=== PATIENT | female | born 1950 | race Caucasian/White ===

== ENCOUNTER 2021-06-24 21:04 | Inpatient (IN) | payer MEDICARE, MEDICAID, SELFPAY ==
[2021-06-24] VITALS (20 sets, daily range): BP systolic 124–174; BP diastolic 102–112; PULSE 76; RESP 19–28; TEMP 36.4; O2SAT 96–100
--- NOTE | ~2021-06-24 | US_ITS ---
US renal BI 06/26/2021 13:19 Procedure: Realtime transabdominal ultrasound of the kidneys and bladder. Indication: Possible masses seen on CT examination. Comparison: CT dated 06/26/2021 Findings: There is a 1.2 cm cyst of the right kidney. No solid renal mass identified. No hydronephros is or stones. Right renal length is 9.4 cm. Left renal echotexture is normal without hydronephrosis, mass or stone. Left kidney measures 8.3 cm. No renal mass identified. Bladder wall is mildly thickene d, although not well distended. Impression: 1: Right renal cyst measuring 1.2 cm. No solid renal masses are identified. 2: Mild bladder wall thickening which may be partially due to underdistention. Consider cystitis in t he appropriate clinical setting.. Reviewed, dictated and finalized at location A. ATION TRAINER Impression: 1: Right renal cyst measuring 1.2 cm. No solid renal masses are identified. 2: Mild bladder wall thickening which may be partially due to underdistention. Consider cystitis in the appropriate clinical setting..
--- NOTE | ~2021-06-24 | XR_ITS ---
EXAMINATION: XR chest 2V EXAM DATE: 06/24/2021 21:39 INDICATION: Medial chest pain, Open Heart Surgery. TECHNIQUE: Frontal and lateral projections of the chest obtained and reviewed. There is no prior tresa dy for comparison. FINDINGS: Triple lead pacemaker/AICD device. Mild cardiomegaly. Mild hyperinflation. No confluent co nsolidation, pneumothorax or pleural effusion suspected. There are no osseous abnormalities identifi ed. IMPRESSION: No acute cardiopulmonary findings. Reviewed, dictated and finalized at location G.
--- NOTE | ~2021-06-24 | CT_ITS ---
EXAMINATION: CTA chest PE protocol DATE: 06/26/2021 12:19 CHIEF PAYROLL CLERK INDICATION: Shortness of breath. Elevated troponin. TECHNIQUE: Computed tomographic angiography (CTA) of the chest was performed with 100 mL Omnipaque-35 0 intravenous contrast. The dose-length product was 734.28 mGy-cm. Maximum intensity projection 3D-re constructions of the aorta and other arteries were constructed by the technologist on a separate work station. COMPARISON: Chest dated 06/24/2019. FINDINGS: Study is technically adequate without evidence for pulmonary embolism. No thoracic lymphade nopathy. Cardiomegaly. No significant pleural or pericardial effusion. No endobronchial lesions. Ther e is lingular atelectasis. No focal pneumonia. There is dependent atelectasis. There is a small bleb in the right upper lobe. No pneumothorax. There are collateral vessels in the anterior chest wall. Th ere are possible bilateral renal masses, not well visualized. There are gallstones. Mild thoracic spo ndylosis. IMPRESSION: 1. No evidence for pulmonary embolism. 2: Cardiomegaly. 3: Possible bilateral renal masses. Recommend correlation with ultrasound. 3: Cholelithiasis. Reviewed, dictated and finalized at location A. F PAYROLL CLERK
--- NOTE | 2021-06-24 21:07 | ECG_ITS ---
Measurements Intervals [place] Rate: 75 P: MD: 0 QRS: -85 QRSD: 169 T: 81 QT: 460 QTc: 516 Interpretive Statements ELECTRONIC VENTRICULAR PACEMAKER UNDERLYING PROBABLY ATRIAL FLUTTER/TACHYCARDIA NO FURTHER INTERPRETATION IS POSSIBLE ABNORMAL ECG Electronically Signed On 06-25-2021 6:39:59 CROSSING GUARD by Erik Rausch D.O.
--- NOTE | 2021-06-24 21:16 | ED.CHESTPAIN ---
HPI - Chest Pain General Chief Complaint: Chest Pain Stated Complaint: chest pain Time Seen by Provider: 06/24/21 21:08 Source: patient Mode of arrival: EMS Limitations: no limitations History of Present Illness HPI narrative: Patient is a 70-year-old female complaining of chest pain, midsternal, tightness, nonradiating, 7 out of 10, accompanied by shortness of breath started proximally 1 hour ago. Patient denies any abdominal pain, nausea, vomiting, diaphoresis, fever or chills. Related Data Allergies Allergy/AdvReac Type Severity Reaction Status Date / Time No Known Allergies Allergy Mild Unverified 02/12/21 15:36 Review of Systems Review of Systems: All systems reviewed & are unremarkable except as noted in HPI and below Constitutional: Constitutional: Denies body ache(s), Denies chills, Denies excessive sweating, Denies fatigue, Denies fever(s), Denies headache(s), Denies lethargy, Denies malaise, Denies weakness and Denies weight loss Eyes: Eyes: Denies blurry vision, Denies change in vision and Denies loss of vision ENT: Denies dizziness, Denies ear discharge, Denies headache(s), Denies lip swelling, Denies epistaxis, Denies nasal congestion, Denies neck pain, Denies throat swelling and Denies tongue swelling Cardiovascular: Cardiovascular: Denies chest pain with activity, Denies diaphoresis, Denies rapid heart rate, Denies edema, Denies irregular heart rhythm, Denies lightheadedness and Denies palpitations Respiratory: Respiratory: Denies chest congestion, Denies cough and Denies hemoptysis Gastrointestinal: Gastrointestinal: Denies abdominal pain, Denies melena, Denies hematochezia, Denies diarrhea, Denies nausea, Denies vomiting and Denies hematemesis Musculoskeletal: Musculoskeletal: Denies abnormal gait, Denies deformity, Denies joint swelling, Denies limited range of motion, Denies neck pain and Denies numbness Neurologic: Denies Abnormal speech present, Denies abnormal gait, Denies confusion, Denies dizziness, Denies headache(s), Denies focal weakness, Denies loss of vision, Denies numbness, Denies Other visual disturbances, Denies Sensory deficit (Neuro) and Denies weakness Psychiatric: Psychiatric: Denies confusion, Denies depression, Denies auditory hallucinations, Denies homicidal ideation and Denies suicidal ideation Endocrine: Endocrine: Denies cold intolerance, Denies excessive sweating, Denies fatigue, Denies heat intolerance and Denies palpitations Hematologic/Lymphatic: Hematologic/Lymphatic: Denies easy bleeding and Denies easy bruising Allergic/Immunologic: Allergic/Immunologic: Denies lip swelling, Denies throat swelling and Denies tongue swelling PMFSH Comments Past medical history: Hypertension, hyperlipidemia, COPD, CABG, pacemaker Family history: Positive for coronary disease Social history: Smokes e-cigarettes, no EtOH or drug use Exam Const: General: cooperative, comfortable, no acute distress, well developed, alert and awake; No confusion Nutritional Appearance: obese Orientation/consciousness: oriented to person, oriented to place, oriented to time, patient oriented x3 and No confusion Limitations: no limitations HENMT: Head: normal to inspection, normocephalic and atraumatic Ears: hearing grossly normal bilaterally, TM normal on the right and TM normal on the left General nose exam: Normal external nose present, Normal nares present and No nasal discharge present Face and sinus: normal facial exam Mouth: Yes Normal oral and palatal mucosa present, Yes lip normal, Yes tongue normal and Yes oropharynx normal Throat: posterior oropharynx normal, tonsils normal and uvula midline Eyes: General: appearance normal, both eyes and all related structures Pupils: Equal, round and reactive pupils present EOM: EOMs intact bilaterally Neck: Neck: normal visual inspection, full ROM, no lymphadenopathy and no meningeal signs Chest: Chest palpation & inspection: normal inspection of the chest Resp: E
[2021-06-24 21:34] LABS: Basophils Percent Auto 0.5 % (0.2-1.2); Eosinophils Absolute Auto 0.2 K/mm3 (0-0.3); Eosinophils Percent Auto 2.7 % (0-4.4); Hematocrit 41.1 % (37.0-47.0); Hemoglobin 13.2 g/dL (12.0-15.0); Immature Granulocyte Absolute 0.04 K/mm3 (0.00-0.031); Immature Granulocyte Percent A 0.6 % (0-0.5); Lymphocytes Absolute Auto 1.85 K/mm3 (0.9-3.2); Lymphocytes Percent Auto 29.6 % (18.3-44.2); Mean Corpuscular HGB Conc 32.1 g/dl (32-36); Mean Corpuscular Hemoglobin 27.8 pg (26-34); Mean Corpuscular Volume 86.5 fl (80-100); Mean Platelet Volume 9.5 fl (7.4-10.4); Monocytes Absolute Auto 0.8 K/mm3 (0.1-0.6); Monocytes Percent Auto 12.6 % (2.6-8.5); Neutrophils Absolute Auto 3.4 K/mm3 (1.3-6.7); Platelet Count Result 211 k/mm3 (150-375); Red Blood Count 4.75 M/mm3 (4.2-5.4); Red Cell Distribution Width 15.5 % (11.5-14.5); White Blood Count 6.3 K/mm3 (4.5-10.0)
[2021-06-24 21:45] LABS: Partial Thromboplastin Time 23.5 SECONDS (22.3-36.8); Prothrombin Time 12.7 Seconds (11.1-14.7)
--- NOTE | 2021-06-24 21:46 | PC.NURSE ---
sitting on cot no distress, skin pwd, family at bedside
[2021-06-24 21:47] LABS: Alanine Aminotransferase 21 U/L (4-35); Albumin Level 3.8 g/dL (3.5-5.1); Alkaline Phosphatase 104 U/L (38-126); Anion Gap 4 mmol/L (8-16); Aspartate Amino Transferase 27 U/L (14-36); Bilirubin,Total 0.9 mg/dL (0.2-1.3); Blood Urea Nitrogen 23 mg/dL (7-17); Calcium 8.9 mg/dL (8.4-10.2); Carbon Dioxide 24 mmol/L (22-30); Chloride 104 mmol/L (98-107); Estimated CRCL calculation 41 ml/min; Estimated Glomerular Filt Rate 41; Glucose 128 mg/dL (65-110); Lipase 125 U/L (23-300); Potassium 4.3 mmol/L (3.4-5.0); Sodium 132 mmol/L (137-145)
[2021-06-24 22:03] LABS: Troponin I 0.035 ng/mL (0.000-0.034)
[2021-06-24] MEDS: NITROGLYCERIN SL 0.4 MG TABLET SUBLINGUAL (22:10)
--- NOTE | 2021-06-24 22:37 | PM.IMHP ---
H&P: HPI History of Present Illness Date/Time: 06/24/21 22:37 Meds Home Medications and Allergies Allergies Allergy/AdvReac Type Severity Reaction Status Date / Time No Known Allergies Allergy Mild Unverified 02/12/21 15:36 Vital Signs Vital Signs - 24 hr 06/24/21 21:08 06/24/21 21:16 Temperature 97.6 F Pulse Rate 76 Respiratory Rate 20 Blood Pressure 156/106 H Pulse Oximetry 97 H&P: Results Labs Labs: Short CBC 06/24/21 Range/Units 21:29 WBC 6.3 (4.5-10.0) K/mm3 Hgb 13.2 (12.0-15.0) g/dL Hct 41.1 (37.0-47.0) % Plt Count 211 (150-375) k/mm3 BMP 06/24/21 21:29 Sodium 132 L Potassium 4.3 Chloride 104 Carbon Dioxide 24 BUN 23 H Creatinine 1.30 H Glucose 128 H Calcium 8.9 Cardiac Enzymes 06/24/21 Range/Units 21:29 Troponin I 0.035 H (0.000-0.034) ng/mL Liver Function 06/24/21 Range/Units 21:29 Total Bilirubin 0.9 (0.2-1.3) mg/dL AST 27 (14-36) U/L ALT 21 (4-35) U/L Alkaline Phosphatase 104 (38-126) U/L Albumin 3.8 (3.5-5.1) g/dL
[2021-06-24] MEDS: ENOXAPARIN 100 MG/ML SYRINGE SUB-Q (22:39)
[2021-06-24] MEDS: MORPHINE SULFATE (*CRX) 2 MG/ML INJ IV PUSH (22:40)
[2021-06-24] MEDS: NITROGLYCERIN OINTMENT 1 INCH DOSE TRANSDERM (22:40)
--- NOTE | 2021-06-24 22:51 | PM.IMHP ---
H&P: HPI History of Present Illness Date/Time: 06/24/21 22:51 Chief Complaint: Chest pain Narrative: This is a 70-year-old female with past medical history significant for patent foramina ovale status post repair, AICD implanted, coronary artery disease, patient usually gets her care at [facility]. She presented to our emergency room today due to chest pain that has been going on for the last day or so patient had been admitted to the hospital for COVID and had been released is been already 3 weeks she denies any fevers, any rigors ,any chills, any cough,, any sputum production, no PND ,no orthopnea, no leg swelling ,no ankle swelling ,no calves pain ,no dizziness, no PND, no orthopnea, no palpitations, no syncope, no near-syncope ,no nausea ,no vomiting ,no diarrhea, no abdominal pain. Patient describes the pain in the retrosternal area was not relieved by nitro patch, relieved with morphine. Preliminary workup is significant for mildly elevated troponin. Patient tested positive for COVID 19 novel virus. Patient is been admitted for further evaluation management and treatment. Review of Systems Review of Systems: Chest pain. Constitutional: Constitutional: Denies chills, Denies fatigue, Denies fever(s), Denies night sweats and Denies weakness Eyes: Eyes: Denies change in vision ENT: Denies dysphagia, Denies vertigo, Denies dizziness, Denies nasal congestion, Denies nasal discharge, Denies nasal obstruction and Denies odynophagia Cardiovascular: Cardiovascular: Reports chest pain at rest, Denies pedal edema, Denies claudication, Denies leg edema, Denies lightheadedness, Denies radiating jaw, neck or arm pain, Denies palpitations, Denies dyspnea on exertion, Denies orthopnea and Denies paroxysmal nocturnal dyspnea Respiratory: Respiratory: Denies change in phlegm color, Denies cough, Denies excessive phlegm production, Denies dyspnea and Denies wheezing Gastrointestinal: Gastrointestinal: Denies abdominal pain, Denies dyspepsia, Denies heartburn, Denies diarrhea, Denies nausea and Denies vomiting Genitourinary: Genitourinary: Denies dysuria and Denies flank pain Musculoskeletal: Musculoskeletal: Denies myalgias and Denies muscle weakness Integumentary/Breasts: Skin/Breast: Denies rash Neurologic: Denies dizziness, Denies focal weakness and Denies Sensory deficit (Neuro) Psychiatric: Psychiatric: Reports no additional psychiatric complaints and Reports as per HPI Endocrine: Endocrine: Denies cold intolerance, Denies excessive sweating, Denies fatigue, Denies flushing, Denies heat intolerance, Denies polyphagia, Denies polydipsia, Denies polyuria and Denies palpitations Hematologic/Lymphatic: Hematologic/Lymphatic: Reports no additional hematologic/lymphatic complaints and Reports as per HPI Allergic/Immunologic: Allergic/Immunologic: Reports no additional allergic/immunologic complaints and Reports as per HPI Meds Home Medications and Allergies Allergies Allergy/AdvReac Type Severity Reaction Status Date / Time No Known Allergies Allergy Mild Unverified 02/12/21 15:36 Vital Signs Vital Signs - 24 hr 06/24/21 21:08 06/24/21 21:16 Temperature 97.6 F Pulse Rate 76 Respiratory Rate 20 Blood Pressure 156/106 H Pulse Oximetry 97 Exam Narrative: Patient is laying in gurney Const: General: cooperative, comfortable, no acute distress, well developed, alert, awake and other (Well-appearing) Nutritional Appearance: overweight Orientation/consciousness: patient oriented x3 HENMT: Head: normal to inspection, normocephalic and atraumatic Ears: hearing grossly normal bilaterally General nose exam: Normal external nose present Face and sinus: normal facial exam Mouth: Yes Normal oral and palatal mucosa present Eyes: General: appearance normal, both eyes and all related structures Alignment and Position: alignment normal Sclera: sclerae normal Pupils: Equal, round and reactive pupils present EOM: EOMs i
[2021-06-24 23:59] LABS: SARS-CoV-2 RNA PCR Positive
[2021-06-25] VITALS (23 sets, daily range): BP systolic 99–195; BP diastolic 68–127; PULSE 74–99; RESP 12–21; TEMP 36–36.9; O2SAT 93–100; BMI 27.1
--- NOTE | 2021-06-25 | ECHO_ITS ---
Patient Info Name: Jaleesa Naik Age: 70 years : 1950 Gender: Female Ht: 63 in Wt: 216 lbs BSA: 2.14 m2 HR: 99 bpm BP: 99 / 68 mmHg Heart Rhythm: Sinus Arrhythmia Technical Quality: Poor Exam Date: 06/25/2021 10:03 AM Exam Location: [facility] Patient Status: Outpatient Admit Date: 06/24/2021 Staff Ordering Physician: Elmo Murillo MD Crating And Moving Estimator: Dona Cruz RDCS Attending Provider: Elmo Murillo MD Referring Physician: Chidi WRIGHT; Exam Type: CA echo doppler color flow Study Info Indications - chest pain Complete two-dimensional, color flow and Doppler transthoracic echocardiogram is performed. Summary 1. Complete two-dimensional, color flow and Doppler transthoracic echocardiogram is performed. 2. Technically suboptimal study due to poor sonographic images. Patient refused definity contrast. 3. Left ventricular systolic function is normal, estimated at 55-60%. No obvious wall motion abnormalities. 4. Left ventricular chamber dimension is normal. 5. There is mildly increased left ventricular wall thickness. 6. The left ventricular diastolic function is abnormal. 7. E/e' 21 is elevated. 8. Right ventricular systolic function is reduced based on abnormal TAPSE 1.2 cm. Left Ventricle E/e' 21 is elevated. Technically suboptimal study due to poor sonographic images. Patient refused definity contrast. Left ventricular systolic function is normal, estimated at 55-60%. No obvious wall motion abnormalities. Left ventricular chamber dimension is normal. There is mildly increased left ventricular wall thickness. The left ventricular diastolic function is abnormal. Right Ventricle Right ventricular systolic function is reduced based on abnormal TAPSE 1.2 cm. Right ventricular chamber dimension is not well visualized. Left Atria Left atrial chamber dimension is normal. Right Atria Right atrial chamber dimension is not well visualized. Aortic Valve The aortic valve is trileaflet. There is no aortic valve stenosis. There is no aortic valve regurgitation. Pulmonic Valve The pulmonic valve is not well visualized. Mitral Valve There is no mitral valve stenosis. There is no mitral valve regurgitation. Tricuspid Valve There is no tricuspid valve regurgitation. Pericardium/Pleural There is no pericardial effusion. Inferior Vena Cava Normal inferior vena cava with >50% collapse upon inspiration consistent with normal right atrial pressure, 5 mmHg. Aorta The aortic root size at the sinus of Valsalva is normal. Left Ventricular Outflow Tract Name Value Normal LVOT 2D LVOT Diameter 1.9 cm LVOT Doppler LVOT Peak Gradient 5 mmHg LVOT Mean Gradient 2 mmHg LVOT VTI 16 cm LVOT VTI/AV VTI Ratio 0.6 LVOT Stroke Volume 44 ml LVOT CO 3.2 l/min LVOT CI 1.5 l/min/m2 Mitral Valve
[2021-06-25 00:58] LABS: Troponin I 0.084 ng/mL (0.000-0.034)
--- NOTE | 2021-06-25 02:50 | ADMGEN ---
This patient, Jaleesa Naik, was admitted to IMU Room 211-01 at 0130 on 06/25/21. Patient/family oriented to hospital policies and general routines including ID bracelet, bed and alarms, visiting hours, pain management, procedures, bathroom and other care routines, personal items, smoking policy, room service/diet, and visiting hours. Information on how to activate the Rapid Response Team has been discussed. Patient/Family are encouraged to report perceived risks to care and to ask questions if they do not understand what they are told or what they should do.
[2021-06-25 05:56] LABS: Troponin I 0.536 ng/mL (0.000-0.034)
--- NOTE | 2021-06-25 08:10 | PM.CNCAR ---
Assessment and Plan Assessment and plan (1) Chest pain: Qualifiers: Chest pain type: chest pain due to myocardial ischemia Ischemic chest pain type: unspecified angina pectoris type Qualified Code(s): I25.9 - Chronic ischemic heart disease, unspecified Code(s): R07.9 - Chest pain, unspecified Status: Acute Assessment and Plan: Differential includes myocarditis, ACS, and less likely pulm embolism. Obtain medical records of last cardiac cath, ICD placement info, Dr. Rodriguez notes at [facility] in past 1-2 years. Obtain echo. Continue Lovenox 1 mg/kg SQ q 12hrs. (2) Elevated troponin: Code(s): R77.8 - Other specified abnormalities of plasma proteins Status: Acute Assessment and Plan: Trend troponins. (3) AICD (automatic cardioverter/defibrillator) present: Code(s): Z95.810 - Presence of automatic (implantable) cardiac defibrillator Status: Acute Assessment and Plan: Obtain records pertaining to it as don't know make of it. (4) Dyslipidemia: Code(s): E78.5 - Hyperlipidemia, unspecified Status: Acute Assessment and Plan: On Atorvastatin. (5) S/P patent foramen ovale closure: Code(s): Z87.74 - Personal history of (corrected) congenital malformations of heart and circulatory system Status: Acute Assessment and Plan: Had PFO closure over 20 years ago had open heart surgery at [facility], and unsure what else was performed during surgery. (6) SARS-CoV-2 positive: Code(s): U07.1 - COVID-19 Status: Acute Assessment and Plan: Management per hospitalist. History of Present Illness History of Present Illness Consult date/time: 06/25/21 08:10 Reason for consult: CP. 70 yr old woman presented to ER via EMS for chest pain. She is a relatively poor historian. She knows she had open heart surgery over 20 years ago at [facility] but unsure what was done other than PFO closure. She had heart problems since age 15 in and out of hospitals and finally need surgery over 20 years ago. She had ICD placed, unsure the make of it over a year ago by Dr. Rodriguez at [facility] but has not followed up. Also history of hypertension, dyslipidemia, COPD, she uses E-cigarettes. Had Covid infection 3 weeks ago and was at [facility] for 3 days. Reports she was just lying down at 8 pm last night when she had severe chest tightness in mid chest. She called ambulance and she was brought here. Since being here she has intermittent chest pains, but not currently. Her covid symptoms are fatigue, intermittent fevers, loss of taste/smell. Normally she walks with a walker about 20 feet and limited first by right hip pain. Covid positive. Trop .035, then .084, then .536. EKG: V. Paced rhythm, and probably underlying atrial flutter/tachycardia. CXR: OK. Sodium 132, Cr 1.3/GFR 41. CBC OK. Reason For Visit: chest pain Review of Systems Review of Systems: All systems reviewed & are unremarkable except as noted in HPI and below Constitutional: Constitutional: Reports as per HPI, Denies chills, Reports fatigue and Reports fever(s) Cardiovascular: Cardiovascular: Reports as per HPI, Reports chest pain and Denies lightheadedness Respiratory: Respiratory: Reports as per HPI and Denies dyspnea Gastrointestinal: Gastrointestinal: Reports as per HPI and Denies abdominal pain Genitourinary: Genitourinary: Reports as per HPI and Denies dysuria Musculoskeletal: Musculoskeletal: Reports as per HPI and Reports arthralgias Neurologic: Reports as per HPI, Denies dizziness and Denies syncope [facility] Family History Family History (Updated 06/25/21 @ 03:40 by Meghan Castaneda RN) Father Congestive heart failure Mother Breast cancer Mother Diabetes mellitus Social History Social History (System 02/12/21 @ 15:36 by Jose Anguiano) Years smoked: 40 Smoking status: Current every day smoker Tobacco type: e-cigarettes
[2021-06-25] MEDS: hydrALAZINE HCL 20 MG/ML VIAL 10 MG IV PUSH (09:22)
[2021-06-25] MEDS: carvediloL 12.5 MG TABLET PO ×2 (11:47→17:23)
[2021-06-25] MEDS: lisinopriL 2.5 MG TABLET PO ×2 (11:48→17:24)
[2021-06-25 12:22] LABS: Hematocrit 42.4 % (37.0-47.0); Hemoglobin 13.2 g/dL (12.0-15.0); Mean Corpuscular HGB Conc 31.1 g/dl (32-36); Mean Corpuscular Hemoglobin 27.9 pg (26-34); Mean Corpuscular Volume 89.6 fl (80-100); Mean Platelet Volume 10.3 fl (7.4-10.4); Platelet Count Result 217 k/mm3 (150-375); Red Blood Count 4.73 M/mm3 (4.2-5.4); Red Cell Distribution Width 15.9 % (11.5-14.5); White Blood Count 5.8 K/mm3 (4.5-10.0)
[2021-06-25 12:29] LABS: Alanine Aminotransferase 25 U/L (4-35); Albumin Level 3.8 g/dL (3.5-5.1); Alkaline Phosphatase 108 U/L (38-126); Anion Gap 3 mmol/L (8-16); Aspartate Amino Transferase 69 U/L (14-36); Bilirubin,Total 0.8 mg/dL (0.2-1.3); Blood Urea Nitrogen 26 mg/dL (7-17); Calcium 9.1 mg/dL (8.4-10.2); Carbon Dioxide 25 mmol/L (22-30); Chloride 105 mmol/L (98-107); Estimated CRCL calculation 33 ml/min; Estimated Glomerular Filt Rate 37; Glucose 90 mg/dL (65-110); Magnesium 1.8 mg/dL (1.6-2.3); Potassium 4.1 mmol/L (3.4-5.0); Sodium 133 mmol/L (137-145)
[2021-06-25 12:35] LABS: Prothrombin Time 12.9 Seconds (11.1-14.7)
--- NOTE | 2021-06-25 12:50 | WPDMODSED ---
Moderate Sedation Note-Pt Data Patient Data Diagnosis: Chest pain Elevated troponin Present Complaint: This is a 70-year-old woman with a history of nonischemic cardiomyopathy and also history of implantable defibrillator who receives her care elsewhere. Apparently in the remote past he also underwent closure of a patent foramen ovale. Following admission to this hospital there has been a significant rise in her troponin. Her electrocardiogram shows electronically paced rhythm from her defibrillator. I have been asked to perform another coronary angiogram under for these reasons. The patient does have coronavirus Allergies Allergy/AdvReac Type Severity Reaction Status Date / Time No Known Allergies Allergy Mild Unverified 02/12/21 15:36 Home Medications Medication Instructions Recorded Confirmed Type albuterol sulfate 2 puff INHALATION PRN PRN 06/25/21 06/25/21 History atorvastatin 20 mg PO DAILY 06/25/21 06/25/21 History carvedilol 12.5 mg PO BID 06/25/21 06/25/21 History isosorbide dinitrate 20 mg PO TID 06/25/21 06/25/21 History lisinopril 2.5 mg PO BID 06/25/21 06/25/21 History Current Medications: Active Medications Albuterol (Albuterol Sulfate (*Sp) Aerosol 1 Puff) 2 puff INHALATION PRN PRN PRN Reason: shortness of breath Atorvastatin Calcium (Atorvastatin 20 Mg Tablet) 20 mg PO DAILY CRISTIANO Carvedilol (Carvedilol 12.5 Mg Tablet) 12.5 mg PO BID CRISTIANO Enoxaparin Sodium (Enoxaparin 1 Mg/Kg) 90 mg SUB-Q Q12HR CRISTIANO Isosorbide Dinitrate (Isosorbide Dinitrate 20 Mg Tablet) 20 mg PO TID CRISTIANO Lisinopril (Lisinopril 2.5 Mg Tablet) 2.5 mg PO BID CRISTIANO Miscellaneous Information (Please Clarify Lovenox Dosing. 1 Mg/Kg = 60 Mg Dose. Are You Trying To Order A 1.5 Mg/Kg) 1 each XX CLARIFY CRISTIANO Stop: 07/25/21 00:00 Nitroglycerin (Nitroglycerin Sl 0.4 Mg Tablet) 0.4 mg SUBLINGUAL Q5MIN PRN PRN Reason: Chest Pain Perflutren Lipid Microsphere (Perflutren Lipid Microspheres 1.5 Ml Vial Diluted To 10 Ml Total Volume) 0 ml IV PUSH ONCE PRN; Protocol PRN Reason: adequate visualization Sedation/Anesthesia: No previous sedation/anesthesia problems (including family history). [facility] Family History Family History (Updated 06/25/21 @ 03:40 by Meghan Castaneda RN) Father Congestive heart failure Mother Breast cancer Mother Diabetes mellitus Social History Social History (System 02/12/21 @ 15:36 by Jose Anguiano) Years smoked: 40 Smoking status: Current every day smoker Tobacco type: e-cigarettes/vaping Second hand tobacco smoke exposure: Yes Alcohol intake: never Substance use: current Substance use type: marijuana Spiritual care concerns: No Mod Sed Physical Exam Physical Exam Pre Procedural Exam: Normal: Throat, Airway, Lungs, Heart Size, Heart Rate, Heart Rhythm and Neuro Exam and Variation: Appearance (Obese white female appears to be comfortable in no distress) Hours since solid foods: 14 Hours since liquid intake: 14 Mallampati Classification: class II Internal Medicine - PN: Obj Da Vital Signs Vital Signs: Vital Signs - 24 hr 06/24/21 21:08 06/24/21 21:10 06/24/21 21:15 Temperature 36.4 C Pulse Rate 76 76 76 Respiratory Rate 20 19 20 Blood Pressure Pulse Oximetry 97 96 97 06/24/21 21:16 06/24/21 21:30 06/24/21 21:31 Temperature Pulse Rate 76 76 Respiratory Rate 24 H 24 H Blood Pressure 156/106 H 163/102 H Pulse Oximetry 96 97 06/24/21 21:45 06/24/21 21:59 06/24/21 22:00 Temperature Pulse Rate 76 76 76 Respiratory Rate 28 H 25 H 20 Blood Pressure 159/110 H Pulse Oximetry 98 97 98 06/24/21 22:01 06/24/21 22:15 06/24/21 22:18 Temperature Pulse Rate 76 76 76 Respiratory Rate 19 19 22 H Blood Pressure 174/111 H 150/105 H Pulse Oximetry 99 98 98 06/24/21 22:30 06/24/21 22:45 06/24/21 22:46 Temperature Pulse Rate 76 Respiratory Rate 28 H Blood Pressure 124/112 H Pulse Oximetry 98 98 06/24/21 22:47 06/24/21 23:00 06/24/21 23
--- NOTE | 2021-06-25 14:22 | WPDCARDPROC ---
Cardiac Cath Procedure Note Date of procedure:: 06/25/21 Performing physician:: Bladimir Fisher MD Indication:: Chest pain, elevated troponin Brief clinical history:: this is a 70-year-old woman who carries the diagnosis of a nonischemic cardiomyopathy. She has had coronary angiography performed in 2004, 2009 in 2018 with normal results. She has an implantable defibrillator that was placed by her legal transcriptionist elsewhere. She presented to this hospital with some chest pain and has had a significant troponin rise. The patient has coronavirus. Procedure Procedure performed:: Left ventriculogram coronary angiogram Angio-Seal to right femoral artery Sedation/Medication given:: fentanyl 50 mg Versed 2 mg case start time 1:37 p.m. case end time 2:17 p.m. sedation provided by Leandra Hernandez RN, trained observer Access site:: right femoral artery Estimated blood loss:: 30 cc Procedure note:: patient was brought to the cardiac catheterization lab in the postabsorptive state where the right femoral triangle was prepared and draped in the usual fashion. Anesthesia was provided with 1% lidocaine infiltrated locally. Using the modified Seldinger technique the right femoral artery was punctured and a 5 [place] vascular sheath was placed. Femoral artery puncture was somewhat challenging but ultimately performed successfully. A 5 [place] angled pigtail catheter was used to measure left-sided hemodynamics and to inject LV g in the ALVES projection. After this I used a 5 [place] FL4 catheter to engage and inject the left coronary artery and then a 5 [place] JR4 catheter to engage and inject the right coronary artery. The cineangiograms were then reviewed and the case was terminated. An angiogram was done the femoral artery through the sheath after which an Angio-Seal device was deployed at the puncture site with a good hemostatic result. The procedure was well tolerated otherwise uncomplicated. Findings:: Hemodynamics: Central aortic pressure was 176 over 90 left ventricle 176/10 end-diastolic 16 there was no transvalvular gradient pullback across the aortic valve. Left ventricle: The left ventricle is normal in size the infero posterior segment is akinetic the anterior wall and apex contract well. The global ejection fraction of visually estimated to be 45%. The left main coronary artery is nicely patent the left anterior descending is a moderate caliber artery extending down to around the apex the LAD is smooth and angiographically normal. The circumflex is a medium caliber artery giving rise to the marginal branch is and 1 posterior branch the circumflex system is smooth and angiographically free of disease. The right coronary artery is small in caliber and is dominant to the posterior circulation the right coronary despite being small is angiographically free of disease. Conclusion:: 1. Right coronary dominant circulation. Angiographically small caliber RCA but with no significant coronary artery disease 2. infero posterior akinesia with mildly reduced global ejection fraction as described above. Bladimir Fisher MD FACC
--- NOTE | 2021-06-25 16:56 | PM.IMPN ---
Progress Note: A&P Assessment and Plan (1) Chest pain: Qualifiers: Chest pain type: chest pain due to myocardial ischemia Ischemic chest pain type: unspecified angina pectoris type Qualified Code(s): I25.9 - Chronic ischemic heart disease, unspecified Code(s): R07.9 - Chest pain, unspecified Status: Acute Assessment and Plan: Patient is been admitted to IMU Usually gets her care as [facility] Will continue to trend troponins Echocardiogram in a.m. Supportive care Cardiology consult 06/25/2021 interval history: patient with history of coronary artery disease now presented with chest pain elevated tropes suspect ischemic myocardial infarction, patient was seen by Cardiology and was taken to patient to the tag and label cutter and it showed patent coronary arteries are patent and somewhat reduced global ejection fraction, will continue medical management and further recommendation to follow. (2) Elevated troponin: Code(s): R77.8 - Other specified abnormalities of plasma proteins Status: Acute Assessment and Plan: Continue to trend (3) AICD (automatic cardioverter/defibrillator) present: Code(s): Z95.810 - Presence of automatic (implantable) cardiac defibrillator Status: Acute Assessment and Plan: Unchanged Continue to monitor (4) Congestive heart failure with left ventricular diastolic dysfunction, NYHA class 4: Code(s): I50.30 - Unspecified diastolic (congestive) heart failure Status: Acute Assessment and Plan: Patient appears euvolemic at physical exam Will place on fluid restriction diet Monitor daily weight Monitor daily intake and output Subjective Date/time seen: 06/25/21 16:56 This is a 70-year-old female with past medical history significant for patent foramina ovale status post repair, AICD implanted, coronary artery disease, patient usually gets her care at [facility]. She presented to our emergency room today due to chest pain that has been going on for the last day or so patient had been admitted to the hospital for COVID and had been released is been already 3 weeks she denies any fevers, any rigors ,any chills, any cough,, any sputum production, no PND ,no orthopnea, no leg swelling ,no ankle swelling ,no calves pain ,no dizziness, no PND, no orthopnea, no palpitations, no syncope, no near-syncope ,no nausea ,no vomiting ,no diarrhea, no abdominal pain. Patient describes the pain in the retrosternal area was not relieved by nitro patch, relieved with morphine. Preliminary workup is significant for mildly elevated troponin. Patient tested positive for COVID 19 novel virus. Patient is been admitted for further evaluation management and treatment. 06/25/2021 interval history: patient with history of coronary artery disease now presented with chest pain elevated tropes suspect ischemic myocardial infarction, patient was seen by Cardiology and was taken to patient to the tag and label cutter and it showed patent coronary arteries are patent and somewhat reduced global ejection fraction, will continue medical management and further recommendation to follow. Review of Systems Review of Systems: All systems reviewed & are unremarkable except as noted in HPI and below Exam Narrative: Patient is comfortable, NAD HEENT: eyes are clear and none icteric LUNGS: normal respiratory effort ABD: not distended Lower extremities: no edema SKIN: nonjaundiced Neuro: grossly intact. Objective Data Vital Signs Vital Signs: Vital Signs - 24 hr 06/24/21 21:08 06/24/21 21:10 06/24/21 21:15 Temperature 97.6 F Pulse Rate 76 76 76 Pulse Rate [Bilateral Pedal (Dorsalis Pedis)] Respiratory Rate 20 19 20 Blood Pressure Pulse Oximetry 97 96 97 06/24/21 21:16 06/24/21 21:30 06/24/21 21:31 Temperature Pulse Rate 76 76 Pulse Rate [Bilateral Pedal (Dorsalis Pedis)] Respiratory Rate 24 H 24 H Blood Pressure 156/106 H
[2021-06-25] MEDS: ISOSORBIDE DINITRATE 20 MG TABLET PO (17:23)
[2021-06-25] MEDS: SODIUM CHLORIDE 0.9% IV 1,000 ML 125 ML IV CONT (17:23)
[2021-06-26] VITALS (17 sets, daily range): BP systolic 122–166; BP diastolic 66–97; PULSE 75–77; RESP 16–22; TEMP 35.8–36.9; O2SAT 95–100
[2021-06-26] MEDS: HYDROcodone/acetaminophen (*CRX) 5-325 MG TABLET 1 TAB PO ×2 (02:01→21:46)
[2021-06-26 05:02] LABS: Hematocrit 38.4 % (37.0-47.0); Hemoglobin 12.3 g/dL (12.0-15.0); Mean Corpuscular Hemoglobin 28.1 pg (26-34); Mean Corpuscular Volume 87.7 fl (80-100); Mean Platelet Volume 10.2 fl (7.4-10.4); Platelet Count Result 211 k/mm3 (150-375); Red Blood Count 4.38 M/mm3 (4.2-5.4); Red Cell Distribution Width 15.6 % (11.5-14.5)
[2021-06-26 05:25] LABS: Anion Gap 6 mmol/L (8-16); Blood Urea Nitrogen 24 mg/dL (7-17); Calcium 8.8 mg/dL (8.4-10.2); Carbon Dioxide 21 mmol/L (22-30); Chloride 105 mmol/L (98-107); Estimated CRCL calculation 38 ml/min; Estimated Glomerular Filt Rate 45; Glucose 105 mg/dL (65-110); Potassium 3.9 mmol/L (3.4-5.0); Sodium 132 mmol/L (137-145)
--- NOTE | 2021-06-26 08:22 | PM.PNCARD ---
Progress Note: A&P Assessment and Plan (1) Chest pain: Qualifiers: Chest pain type: chest pain due to myocardial ischemia Ischemic chest pain type: unspecified angina pectoris type Qualified Code(s): I25.9 - Chronic ischemic heart disease, unspecified Code(s): R07.9 - Chest pain, unspecified Status: Acute Assessment and Plan: Differential includes myocarditis, ACS, and less likely pulm embolism. Echo 06/25/21 shows TDS, EF 55%, no obvious wall motion abnormalities and patient refused definity contrast, mild LVH, diastolic dysfunction (E/e' 21), RV dysfunction based on TAPSE 1.[address] cm[address] [facility] with Dr. Fisher on 06/25/21 shows normal coronaries and inferposterior akinesis. Obtain medical records of last cardiac cath, ICD placement info, Dr. Rodriguez notes at [facility] in past 1-2 years. With rise in troponin, differential includes myocarditis and pulm embolism. Will obtain CTA of chest today. (2) Elevated troponin: Code(s): R77.8 - Other specified abnormalities of plasma proteins Status: Acute Assessment and Plan: Trend troponin until peaks. (3) AICD (automatic cardioverter/defibrillator) present: Code(s): Z95.810 - Presence of automatic (implantable) cardiac defibrillator Status: Acute Assessment and Plan: Obtain records pertaining to it as don't know make of it. (4) Dyslipidemia: Code(s): E78.5 - Hyperlipidemia, unspecified Status: Acute Assessment and Plan: On Atorvastatin. (5) S/P patent foramen ovale closure: Code(s): Z87.74 - Personal history of (corrected) congenital malformations of heart and circulatory system Status: Acute Assessment and Plan: Had PFO closure over 20 years ago had open heart surgery at [facility], and unsure what else was performed during surgery. (6) SARS-CoV-2 positive: Code(s): U07.1 - COVID-19 Status: Acute Assessment and Plan: Management per hospitalist. Subjective Date/time seen: 06/26/21 08:22 Reports mild intermittent chest pains. Right hip pain. Exam Const: General: cooperative, healthy appearing and comfortable Nutritional Appearance: obese Resp: Auscultation: clear to auscultation bilaterally, no crackles, no rales, no rhonchi and no wheezes Cardio: Jugular venous distension: no JVD Rate: regular rate Rhythm: regular rhythm Heart sounds: no murmurs Peripheral pulses: dorsalis pedis present GI: GI Palp: No abdominal tenderness and Yes Soft to palpation Neuro: General: oriented to person, oriented to place and oriented to time Extrem: Right lower extremity: no edema Left lower extremity: no edema Objective Data Vital Signs Vital Signs: Vital Signs - 24 hr 06/25/21 10:00 06/25/21 11:47 06/25/21 12:00 Temperature 97.3 F L Pulse Rate 76 76 76 Pulse Rate [Bilateral Pedal (Dorsalis Pedis)] Respiratory Rate 18 Blood Pressure 186/99 H Pulse Oximetry 99 06/25/21 14:10 06/25/21 14:25 06/25/21 14:40 Temperature 97.3 F L Pulse Rate 76 77 77 Pulse Rate [Bilateral Pedal (Dorsalis Pedis)] 76 76 76 Respiratory Rate 12 18 18 Blood Pressure 176/99 H 128/84 124/77 Pulse Oximetry 93 95 95 06/25/21 14:55 06/25/21 15:10 06/25/21 15:51 Temperature 96.8 F L Pulse Rate 75 76 Pulse Rate [Bilateral Pedal (Dorsalis Pedis)] 76 76 Respiratory Rate 18 12 16 Blood Pressure 154/89 H 149/95 H 152/90 H Pulse Oximetry 96 97 100 06/25/21 16:00 06/25/21 16:21 06/25/21 17:21 Temperature Pulse Rate 76 76 Pulse Rate [Bilateral Pedal (Dorsalis Pedis)] Respiratory Rate Blood Pressure 149/118 H Pulse Oximetry 06/25/21 17:23 06/25/21 18:00 06/25/21 19:12 Temperature 97.9 F 97.8 F Pulse Rate 76 76 76 Pulse Rate [Bilateral Pedal (Dorsalis Pedis)] Respiratory Rate 18 16 Blood Pressure 121/73 120/72 Pulse Oximetry 97 97 06/25/21 20:00 06/25/21 22:00 06/26/21 00:00 Temperature 98.4 F Pulse Rate 76 76 76 Pulse Rate
--- NOTE | 2021-06-26 09:46 | PC.NURSE ---
Patient needs a [address] with contrast. 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 Dr. Mccabe called and agreed to midline placement.
[2021-06-26] MEDS: ATORVASTATIN 20 MG TABLET PO (13:16)
[2021-06-26] MEDS: ISOSORBIDE DINITRATE 20 MG TABLET PO ×2 (13:17→17:44)
[2021-06-26] MEDS: carvediloL 12.5 MG TABLET PO ×2 (13:18→17:47)
[2021-06-26] MEDS: lisinopriL 2.5 MG TABLET PO ×2 (13:20→17:44)
--- NOTE | 2021-06-26 14:13 | PM.IMPN ---
Progress Note: A&P Assessment and Plan (1) Chest pain: Qualifiers: Chest pain type: chest pain due to myocardial ischemia Ischemic chest pain type: unspecified angina pectoris type Qualified Code(s): I25.9 - Chronic ischemic heart disease, unspecified Code(s): R07.9 - Chest pain, unspecified Status: Acute Assessment and Plan: Patient is been admitted to IMU Usually gets her care as and [facility] Will continue to trend troponins Echocardiogram in a.m. Supportive care Cardiology consult 06/25/2021 interval history: patient with history of coronary artery disease now presented with chest pain elevated tropes suspect ischemic myocardial infarction, patient was seen by Cardiology and was taken to patient to the tender labor and it showed patent coronary arteries are patent and somewhat reduced global ejection fraction, will continue medical management and further recommendation to follow. 06/26/2021 cardiac catheterization with no significant coronary artery disease in [facility] with mildly reduced global ejection fraction estimated to be 45%. Troponins elevated from COVID infection CTA done today was negative for PE. Echo 06/25/2021 shows EF 55% no obvious wall motion abnormalities mild LVH diastolic dysfunction (2) Elevated troponin: Code(s): R77.8 - Other specified abnormalities of plasma proteins Status: Acute Assessment and Plan: Peaked at 15 (3) AICD (automatic cardioverter/defibrillator) present: Code(s): Z95.810 - Presence of automatic (implantable) cardiac defibrillator Status: Acute Assessment and Plan: Unchanged Continue to monitor (4) Congestive heart failure with left ventricular diastolic dysfunction, NYHA class 4: Code(s): I50.30 - Unspecified diastolic (congestive) heart failure Status: Acute Assessment and Plan: Patient appears euvolemic at physical exam Will place on fluid restriction diet Monitor daily weight Monitor daily intake and output (5) SARS-CoV-2 positive: Code(s): U07.1 - COVID-19 Status: Acute Assessment and Plan: Chest x-rays negative and no hypoxia noted (6) S/P patent foramen ovale closure: Code(s): Z87.74 - Personal history of (corrected) congenital malformations of heart and circulatory system Status: Acute (7) Dyslipidemia: Code(s): E78.5 - Hyperlipidemia, unspecified Status: Acute Assessment and Plan: Atorvastatin (8) Renal mass: Code(s): N28.89 - Other specified disorders of kidney and ureter Status: Acute Assessment and Plan: Noted on CT. Ultrasound done which revealed right renal cyst measuring 1.2 cm no solid renal masses identified Subjective Date/time seen: 06/26/21 14:13 Interval history: This is a 70-year-old female with past medical history significant for patent foramina ovale status post repair, AICD implanted, coronary artery disease, patient usually gets her care at [facility]. She presented to our emergency room today due to chest pain that has been going on for the last day or so patient had been admitted to the hospital for COVID and had been released is been already 3 weeks she denies any fevers, any rigors ,any chills, any cough,, any sputum production, no PND ,no orthopnea, no leg swelling ,no ankle swelling ,no calves pain ,no dizziness, no PND, no orthopnea, no palpitations, no syncope, no near-syncope ,no nausea ,no vomiting ,no diarrhea, no abdominal pain. Patient describes the pain in the retrosternal area was not relieved by nitro patch, relieved with morphine. Preliminary workup is significant for mildly elevated troponin. Patient tested positive for COVID 19 novel virus. Patient is been admitted for further evaluation management and treatment. 06/25/2021 interval history: patient with history of coronary artery disease now presented with chest pain elevated tropes suspect ischem
[2021-06-27] VITALS (8 sets, daily range): BP systolic 119–156; BP diastolic 67–84; PULSE 76; RESP 16–18; TEMP 36.3–36.4; O2SAT 99
[2021-06-27 07:14] LABS: Hematocrit 36.4 % (37.0-47.0); Hemoglobin 11.5 g/dL (12.0-15.0); Mean Corpuscular HGB Conc 31.6 g/dl (32-36); Mean Corpuscular Hemoglobin 27.8 pg (26-34); Mean Corpuscular Volume 87.9 fl (80-100); Mean Platelet Volume 9.7 fl (7.4-10.4); Platelet Count Result 174 k/mm3 (150-375); Red Blood Count 4.14 M/mm3 (4.2-5.4); Red Cell Distribution Width 15.4 % (11.5-14.5); White Blood Count 4.9 K/mm3 (4.5-10.0)
[2021-06-27 07:48] LABS: Anion Gap 2 mmol/L (8-16); Blood Urea Nitrogen 20 mg/dL (7-17); Calcium 8.8 mg/dL (8.4-10.2); Carbon Dioxide 28 mmol/L (22-30); Chloride 105 mmol/L (98-107); Estimated CRCL calculation 49 ml/min; Estimated Glomerular Filt Rate 49; Glucose 87 mg/dL (65-110); Potassium 3.8 mmol/L (3.4-5.0); Sodium 135 mmol/L (137-145)
--- NOTE | 2021-06-27 08:40 | PM.PNCARD ---
Progress Note: A&P Assessment and Plan (1) Chest pain: Qualifiers: Chest pain type: chest pain due to myocardial ischemia Ischemic chest pain type: unspecified angina pectoris type Qualified Code(s): I25.9 - Chronic ischemic heart disease, unspecified Code(s): R07.9 - Chest pain, unspecified Status: Acute Assessment and Plan: Due to myocarditis. Echo 06/25/21 shows TDS, EF 55%, no obvious wall motion abnormalities and patient refused definity contrast, mild LVH, diastolic dysfunction (E/e' 21), RV dysfunction based on TAPSE 1.[address] Fisher on 06/25/21 shows normal coronaries and inferposterior akinesis. CTA chest on 06/26/21 showed no pulm embolism. Obtain medical records of last cardiac cath, ICD placement info, Dr. Rodriguez notes at [facility] in past 1-2 years. September d/c home from cardiology standpoint and f/u with her regular seismograph chief at [facility]. She cannot recall his name at this moment. Patient also advised to f/u with him or Dr. Rodriguez for her ICD check since she has not since it was placed almost 2 years ago. (2) Elevated troponin: Code(s): R77.8 - Other specified abnormalities of plasma proteins Status: Acute Assessment and Plan: Troponin peaked at 15 on 06/26/21. It is down to 8 today. (3) AICD (automatic cardioverter/defibrillator) present: Code(s): Z95.810 - Presence of automatic (implantable) cardiac defibrillator Status: Acute Assessment and Plan: Obtain records pertaining to it as don't know make of it. (4) Dyslipidemia: Code(s): E78.5 - Hyperlipidemia, unspecified Status: Acute Assessment and Plan: On Atorvastatin. (5) S/P patent foramen ovale closure: Code(s): Z87.74 - Personal history of (corrected) congenital malformations of heart and circulatory system Status: Acute Assessment and Plan: Had PFO closure over 20 years ago had open heart surgery at [facility], and unsure what else was performed during surgery. (6) SARS-CoV-2 positive: Code(s): U07.1 - COVID-19 Status: Acute Assessment and Plan: Management per hospitalist. Subjective Date/time seen: 06/27/21 08:40 Has intermittent mild chest pain and sob. No chest pain or sob currently. Exam Const: General: cooperative, healthy appearing and comfortable Nutritional Appearance: obese Resp: Auscultation: clear to auscultation bilaterally, no crackles, no rales, no rhonchi and no wheezes Cardio: Jugular venous distension: no JVD Rate: regular rate Rhythm: regular rhythm Heart sounds: no murmurs Peripheral pulses: dorsalis pedis present GI: GI Palp: No abdominal tenderness and Yes Soft to palpation Neuro: General: oriented to person, oriented to place and oriented to time Extrem: Right lower extremity: no edema Left lower extremity: no edema Objective Data Vital Signs Vital Signs: Vital Signs - 24 hr 06/26/21 10:00 06/26/21 12:00 06/26/21 13:18 Temperature 96.4 F L Pulse Rate 76 75 76 Respiratory Rate 20 Blood Pressure 158/96 H Pulse Oximetry 100 06/26/21 14:00 06/26/21 15:15 06/26/21 16:00 Temperature 97.2 F L Pulse Rate 76 76 Respiratory Rate 22 H 16 Blood Pressure 122/69 Pulse Oximetry 95 98 06/26/21 17:47 06/26/21 18:00 06/26/21 19:20 Temperature 97.7 F Pulse Rate 76 76 76 Respiratory Rate 16 Blood Pressure 127/66 Pulse Oximetry 98 06/26/21 20:00 06/26/21 22:00 06/26/21 23:47 Temperature 98.3 F Pulse Rate 76 76 76 Respiratory Rate 18 Blood Pressure 129/71 Pulse Oximetry 98 99 06/27/21 00:00 06/27/21 02:00 06/27/21 04:00 Temperature 97.4 F L Pulse Rate 76 76 76 Respiratory Rate 16 Blood Pressure 119/67 Pulse Oximetry 99 99 06/27/21 06:00 Temperature Pulse Rate 76 Respiratory Rate Blood Pressure Pulse Oximetry Intake/Output Intake/Output: Intake & Output 06/24/21 06/25/21 06/26/21 06/27/21
[2021-06-27] MEDS: ISOSORBIDE DINITRATE 20 MG TABLET PO ×2 (09:16→12:42)
[2021-06-27] MEDS: carvediloL 12.5 MG TABLET PO (09:16)
[2021-06-27] MEDS: ATORVASTATIN 20 MG TABLET PO (09:16)
[2021-06-27] MEDS: lisinopriL 2.5 MG TABLET PO (09:17)
[2021-06-27] MEDS: HYDROcodone/acetaminophen (*CRX) 5-325 MG TABLET 1 TAB PO (09:24)
--- NOTE | 2021-06-27 10:21 | PM.DS ---
DS: Admitting Diagnosis Discharge Date 06/27/2021 Admitting Diagnosis chest pain DS: Discharge Diagnosis Discharge Diagnosis (1) Chest pain: Qualifiers: Chest pain type: chest pain due to myocardial ischemia Ischemic chest pain type: unspecified angina pectoris type Qualified Code(s): I25.9 - Chronic ischemic heart disease, unspecified Code(s): R07.9 - Chest pain, unspecified Status: Acute Assessment and Plan: Patient admitted to IMU, She usually gets her care as [facility]. initial troponin was mild but serial levels were elevated and peaked at 15. cardiology was consulted for NSTEMI and she underwent ardiac catheterisation which showed no significant coronary artery disease. She was recenlty positive for COVID 19 and remained positive when she was reevaluated here. her ECHOcardiogram showed mildly reduced global ejection fraction estimated to be 45%. mild LVH an diastolic dysfunction. CTA was done which ruled out PE. she most likely COVID-19 related myocarditis. She is okay from cardiology standpoint to go home she is advised to follow up with her regular sailmaker as well as eye technician. (2) Elevated troponin: Code(s): R77.8 - Other specified abnormalities of plasma proteins Status: Acute Assessment and Plan: Peaked at 15 (3) AICD (automatic cardioverter/defibrillator) present: Code(s): Z95.810 - Presence of automatic (implantable) cardiac defibrillator Status: Acute Assessment and Plan: Unchanged Continue to monitor (4) Congestive heart failure with left ventricular diastolic dysfunction, NYHA class 4: Code(s): I50.30 - Unspecified diastolic (congestive) heart failure Status: Acute Assessment and Plan: Patient appears euvolemic at physical exam. Chest x-ray with no active acute cardiopulmonary disease Will place on fluid restriction diet Monitor daily weight Monitor daily intake and output (5) SARS-CoV-2 positive: Code(s): U07.1 - COVID-19 Status: Acute Assessment and Plan: Chest x-rays negative and no hypoxia noted. She has been positive since past 3 weeks (6) S/P patent foramen ovale closure: Code(s): Z87.74 - Personal history of (corrected) congenital malformations of heart and circulatory system Status: Acute Assessment and Plan: Follow-up with cardiology as an outpatient basis (7) Dyslipidemia: Code(s): E78.5 - Hyperlipidemia, unspecified Status: Acute Assessment and Plan: Atorvastatin (8) Renal mass: Code(s): N28.89 - Other specified disorders of kidney and ureter Status: Acute Assessment and Plan: Noted on CT. Ultrasound done which revealed right renal cyst measuring 1.2 cm no solid renal masses identified DS: Summary Hospital Course Reason for hospitalization: This is a 70-year-old female with past medical history significant for patent foramina ovale status post repair, AICD implanted, coronary artery disease, patient usually gets her care at [facility]. She presented to our emergency room today due to chest pain that has been going on for the last day or so patient had been admitted to the hospital for COVID and had been released is been already 3 weeks she denies any fevers, any rigors ,any chills, any cough,, any sputum production, no PND ,no orthopnea, no leg swelling ,no ankle swelling ,no calves pain ,no dizziness, no PND, no orthopnea, no palpitations, no syncope, no near-syncope ,no nausea ,no vomiting ,no diarrhea, no abdominal pain. Patient describes the pain in the retrosternal area was not relieved by nitro patch, relieved with morphine. Preliminary workup is significant for mildly elevated troponin. Patient tested positive for COVID 19 novel virus. Patient is been admitted for further evaluation management and treatment. Hospital Course: see above Time Spent with Patient Time attestation: Total time
--- NOTE | 2021-06-27 13:39 | PCPTNOTE ---
received PT eval orders. Discussed pt with RN- she reported pt is doing well, walking to bathroom without problem, and may be discharged today. Discharge orders are posted; PT eval was not indicated prior to d/c;
--- NOTE | 2021-06-27 14:29 | PC.NURSE ---
Patient discharged to home at 1410. Education was provided on need to adhere to medicine as prescribed, as well as diet and post cath care. Son was on phone at that time. Neither patient or son had any questions at this time.
== END 2021-06-27 14:14 | disposition home or self-care (01) | DRG 287 ==
LOC: ANHED 22:18 → ANHIMU 06-25 01:09
PROVIDERS: Emergency Medicine; Family Medicine; Internal Medicine Cardiovascular Disease; Specialist; Admitting Provider Internal Medicine; Emergency Provider Emergency Medicine; PCP Family Medicine; Visit Provider Internal Medicine
PROC: 4A023N7 Measurement of Cardiac Sampling and Pressure, Left Heart, Percutaneous Approach (ICD-10-PCS; CPT 93452; principal; 2021-06-25 13:00)
PROC: 4A023N7 Measurement of Cardiac Sampling and Pressure, Left Heart, Percutaneous Approach (ICD-10-PCS; 2021-06-25 13:00)
DX: I40.0 Infective myocarditis (principal); I42.8 Other cardiomyopathies; I50.32 Chronic diastolic (congestive) heart failure; U09.9 Post COVID-19 condition, unspecified; E78.5 Hyperlipidemia, unspecified; N28.89 Other specified disorders of kidney and ureter; J44.9 Chronic obstructive pulmonary disease, unspecified; F17.290 Nicotine dependence, other tobacco product, uncomplicated; Z95.1 Presence of aortocoronary bypass graft; Z95.810 Presence of automatic (implantable) cardiac defibrillator
CPT/HCPCS: 36415; 36569; 71046; 71275; 76775; 80048; 80053; 83690; 83735; 84484; 85025; 85027; 85610; 85730; 93005; 93306; 93458; 96372; 96374; 96375; 99285; A9270; C1751; C1760; C1887; C1894; C9803; G0269; G0378; J0360; J1644; J1650; J2250; J2270; J3010; J7030; J7040; Q9967; U0003; U0005